=== PATIENT | male | born 1990 | race Caucasian/White ===

== ENCOUNTER 2018-06-17 19:10 | Emergency (ER) | payer MEDICAID, OTHER ==
[~2018-06-17] VITALS: Ht 188 cm; Wt 100.0 kg
[~2018-06-17 19:10] MED LIST: IBUP-1984 PO; PER10325T PO
[2018-06-17 19:23] VITALS: BP 159/81
[2018-06-17] MEDS ORDERED: CEPH-572 PO (22:34)
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
== END 2018-06-17 23:37 | disposition home or self-care (01) ==
LOC: ER 19:10
DX: S81.011A Laceration without foreign body, right knee, initial encounter (principal); F12.90 Cannabis use, unspecified, uncomplicated; Z79.899 Other long term (current) drug therapy; W34.09XA Accidental discharge from other specified firearms, initial encounter; Y93.89 Activity, other specified; Y92.89 Other specified places as the place of occurrence of the external cause; Y99.8 Other external cause status
CPT/HCPCS: 12004; 99283

== ENCOUNTER 2018-06-23 10:49 | Emergency (ER) | payer MEDICAID ==
[~2018-06-23] VITALS: Ht 190.5 cm; Wt 101.0 kg
[~2018-06-23 10:49] MED LIST changes: +CEPH-572 PO
[2018-06-23 10:59] VITALS: BP 123/75
[2018-06-23] MEDS ORDERED: DOXY100C2 PO (13:08)
== END 2018-06-23 13:22 | disposition home or self-care (01) ==
LOC: ER 10:50
DX: S81.011D Laceration without foreign body, right knee, subsequent encounter (principal); F12.90 Cannabis use, unspecified, uncomplicated; Z79.899 Other long term (current) drug therapy; W34.09XD Accidental discharge from other specified firearms, subsequent encounter
CPT/HCPCS: 99283

== ENCOUNTER 2018-11-10 10:31 | Emergency (ER) | payer OTHER ==
[~2018-11-10] VITALS: Ht 188 cm; Wt 99.0 kg
[~2018-11-10 10:31] MED LIST changes: -CEPH-572 PO
[2018-11-10 10:56] VITALS: BP 136/73
[2018-11-10] MEDS ORDERED: ketorolac tromethamine 15mg/ml inj. IM ONE (12:25)
[2018-11-10] MEDS ORDERED: orphenadrine citrate 60mg/2ml inj. IM ONE (12:25)
[2018-11-10] MEDS ORDERED: NAPR-56 PO (12:25)
[2018-11-10] MEDS ORDERED: METH-360 PO (12:25)
== END 2018-11-10 13:29 | disposition home or self-care (01) ==
LOC: ER 10:31
DX: S62.314A Displaced fracture of base of fourth metacarpal bone, right hand, initial encounter for closed fracture (principal); S40.012A Contusion of left shoulder, initial encounter; S50.312A Abrasion of left elbow, initial encounter; F12.90 Cannabis use, unspecified, uncomplicated; F41.9 Anxiety disorder, unspecified; V19.88XA Pedal cyclist (driver) (passenger) injured in other specified transport accidents, initial encounter; Y93.55 Activity, bike riding; Y92.413 State road as the place of occurrence of the external cause; Y99.9 Unspecified external cause status
CPT/HCPCS: 29125; 73030; 73130; 96372; 99283; J1885; J2360

== ENCOUNTER 2018-11-22 15:14 | Outpatient (CLI) | payer MEDICAID, OTHER ==
[~2018-11-22 15:14] MED LIST changes: +METH-360 PO; +NAPR-56 PO
== END 2018-11-22 16:21 | disposition home or self-care (01) ==
LOC: ORTHO 15:14
PROVIDERS: ATTEND Orthopaedic Surgery
DX: S62.324D Displaced fracture of shaft of fourth metacarpal bone, right hand, subsequent encounter for fracture with routine healing (principal); X58.XXXD Exposure to other specified factors, subsequent encounter
CPT/HCPCS: 29125; 73130; G0463

== ENCOUNTER 2020-01-04 21:50 | Emergency (ER) | payer MEDICAID ==
[~2020-01-04] VITALS: Ht 188 cm; Wt 100.0 kg
[~2020-01-04 21:50] MED LIST changes: -NAPR-56 PO
[2020-01-04 21:55] VITALS: BP 153/95
[2020-01-04] MEDS ORDERED: ketorolac tromethamine 15mg/ml inj. IM ONE (22:55)
== END 2020-01-04 23:39 | disposition home or self-care (01) ==
LOC: ER 21:51
DX: M25.561 Pain in right knee (principal); F41.9 Anxiety disorder, unspecified; F12.90 Cannabis use, unspecified, uncomplicated; Z72.89 Other problems related to lifestyle; Z56.0 Unemployment, unspecified; Z79.899 Other long term (current) drug therapy
CPT/HCPCS: 29505; 73564; 99283

== ENCOUNTER 2020-08-14 13:13 | Emergency (ER) | payer MEDICAID | END 2020-08-14 15:12 | disposition left against medical advice (07) | LOC: ER 13:13 | DX: N49.2 Inflammatory disorders of scrotum (principal); Z53.21 Procedure and treatment not carried out due to patient leaving prior to being seen by health care provider ==